=== PATIENT | male | born 1995 | race Two or more races ===

== ENCOUNTER 2019-10-15 01:18 | Emergency (ER) | payer OTHER ==
[~2019-10-15] VITALS: Ht 177.8 cm; Wt 86.2 kg
[2019-10-15 01:37] VITALS: BP 133/57
[2019-10-15] MEDS ORDERED: HYDROCODONE/APAP 5/325MG 1 EACH TABLET ONE (02:20)
[2019-10-15] MEDS ORDERED: HYDROCODONE/APAP 5/325MG 1 EACH TABLET PO ONE (02:30)
--- NOTE | 2019-10-15 02:31 | NUR ---
Patient discharged to [facility] in stable condition. Written and verbal after care instructions given. Patient verbalizes understanding of instruction.
== END 2019-10-15 02:31 | disposition home or self-care (01) ==
LOC: ER 01:20
DX: S62.396A Other fracture of fifth metacarpal bone, right hand, initial encounter for closed fracture (principal); W22.01XA Walked into wall, initial encounter; Y93.89 Activity, other specified; Y92.89 Other specified places as the place of occurrence of the external cause; Y99.8 Other external cause status
CPT/HCPCS: 73130-TC